=== PATIENT | male | born 1990 | race Caucasian/White ===

== ENCOUNTER 2018-09-08 09:26 | Emergency (ER) | payer OTHER ==
[2018-09-08] MEDS ORDERED: Ibuprofen TAB* 800 MG PO ONE (09:48)
--- NOTE | 2018-09-08 09:49 | ED ---
Psychiatric Complaint - HPI Summary HPI Summary: 28 year old M brought in by police to [facility] with a chief complaint of being anxious, depressed, and angry since two hours ago. Symptoms aggravated by nothing. Symptoms alleviated by nothing. Patient reports lower back pain. He also reports right hand pain. Patient denies suicidal ideation, homicidal ideation. Patient has hx anxiety and depression but he is not taking psychiatric medication. Patient states he called 911 this morning to be escorted to his house and the police brought him to ED for stating that he is going to do something crazy. Patient states he is upset. - History Of Current Complaint Chief Complaint: EDMentalHealth Time Seen by Provider: 09/08/18 09:36 Hx Obtained From: Patient Onset/Duration: Lasting Hours, Still Present Timing: Constant Aggravating Factor(s): Nothing Alleviating Factor(s): Nothing Has Suicidal: Denies: Thoughts Has Homicidal: Denies: Thoughts - Allergies/Home Medications Allergies/Adverse Reactions: Allergies Allergy/AdvReac Type Severity Reaction Status Date / Time No Known Allergies Allergy Verified 09/08/18 09:33 Home Medications: Home Medications NK [No Home Medications Reported] 09/08/18 [History Confirmed 09/08/18] PMH/Surg Hx/FS Hx/Imm Hx Previously Healthy: No Sensory History: Denies: Hx Legally Blind, Hx Deafness Opthamlomology History: Denies: Hx Legally Blind EENT History: Denies: Hx Deafness Psychiatric History: Reports: Hx Anxiety, Hx Depression - Surgical History Surgery Procedure, Year, and Place: None reported Infectious Disease History: No Infectious Disease History: Denies: Traveled Outside the [place] in Last 30 Days - Family History Family History: Maternal grandmother had quadruple bypass - Social History Alcohol Use: Weekly Hx Substance Use: Yes Substance Use Type: Reports: Marijuana Hx Tobacco Use: Yes Smoking Status (MU): Light Every Day Tobacco Smoker Review of Systems Positive: Other - right hand pain, low back pain Positive: Anxious, Depressed, Other - anger; NEG: SI, HI All Other Systems Reviewed And Are Negative: Yes Physical Exam - Summary Physical Exam Summary: VITAL SIGNS: Reviewed. GENERAL: Patient is a well-developed and nourished MALE who is lying comfortable in the stretcher. Patient is not in any acute respiratory distress. HEAD AND FACE: No signs of trauma. No ecchymosis, hematomas or skull depressions. No sinus tenderness. EYES: PERRLA, EOMI x 2, No injected conjunctiva, no nystagmus. EARS: Hearing grossly intact. Ear canals and tympanic membranes are within normal limits. MOUTH: Oropharynx within normal limits. NECK: Supple, trachea is midline, no adenopathy, no JVD, no carotid bruit, no c- spine tenderness, neck with full ROM. CHEST: Symmetric, no tenderness at palpation LUNGS: Clear to auscultation bilaterally. No wheezing or crackles. CVS: Regular rate and rhythm, S1 and S2 present, no murmurs or gallops appreciated. ABDOMEN: Soft, non-tender. No signs of distention. No rebound no guarding, and no masses palpated. Bowel sounds are normal. EXTREMITIES: FROM in all major joints, no edema, no cyanosis or clubbing. NEURO: Alert and oriented x 3. No acute neurological deficits. Speech is normal and follows commands. SKIN: Dry and warm. PSYCH: Depressed, quiet, and denies any suicidal thoughts or plan. No homicidal thoughts or plan. No signs of psychosis or pressure speech. No tangential speech. Triage Information Reviewed: Yes Vital Signs On Initial Exam: Initial Vitals Temp Pulse Resp BP Pulse Ox 98.3 F 59 16 146/86 99 09/08/18 09:27 09/08/18 09:27 09/08/18 09:27 09/08/18 09:27 09/08/18 09:27 Vital Signs Reviewed: Yes Diagnostics - Vital Signs Vital Signs Temp Pulse Resp BP Pulse Ox 09/08/18 09:27 98.3 F 59 16 146/86 99 - Laboratory Lab Statement: Any lab studies that have been ordered have been reviewed, and results considered in the medical decision making process. Course/Dx - Course Assessment/Plan: 28 year old M brought in by police to [facility] with a chief complaint of being anxious, depressed, and angry since two hours ago. Symptoms aggravated by nothing. Symptoms alleviated by nothing. Patient reports lower back pain. He also reports right hand pain. Patient denies suicidal ideation, homicidal ideation. Patient has hx anxiety and depression but he is not taking psychiatric medication. Patient states he called 911 this morning to be escorted to his house and the police brought him to ED for stating that he is going to do something crazy. Patient states he is upset. The patient declined x -rays of his back and right hand. Mental health undercutter Dileep spoke with Dr. Cisneros, psychiatry. They state that the patient will be discharged home. The patient will be discharged home and referred to primary care provider for follow -up in 3 days. At discharge, the patient does not have any other complaints. Patient was instructed to return to the emergency room if he develops any other symptoms. He understands and agrees. - Differential Dx/Clinical Impression Provider Diagnosis: Stress and adjustment reaction Discharge - Sign-Out/Discharge Documenting (check all that apply): Patient Departure - Discharge Patient Received Moderate/Deep Sedation with Procedure: No - Discharge Plan Condition: Stable Disposition: HOME Patient Education Materials: Stress (ED) Referrals: No Primary Care Phys,NOPCP [Primary Care Provider] - - Billing Disposition and Condition Condition: STABLE Disposition: Home - Attestation Statements Document Initiated by Derek: Yes Documenting Scribe: Rosa Yoon Provider For Whom Brandieibe is Documenting (Include Credential): Loco Soto MD Scribe Attestation: Rosa Spain scribed for Loco Soto MD on 09/08/18 at 1102. Scribe Documentation Reviewed: Yes Provider Attestation: The documentation as recorded by the Rosa clements accurately reflects the service I personally performed and the decisions made by Loco hankins MD Status of Scribe Document: Viewed
[2018-09-08 11:05] VITALS: BP 124/76
== END 2018-09-08 11:03 | disposition home or self-care (01) ==
LOC: ED 09:26
DX: F43.9 Reaction to severe stress, unspecified (principal); F43.20 Adjustment disorder, unspecified; F17.210 Nicotine dependence, cigarettes, uncomplicated
CPT/HCPCS: 99282; A9270-GY